=== PATIENT | male | born 1965 | race Caucasian/White ===

== ENCOUNTER 2021-05-22 17:29 | Emergency (ER) | payer BC ==
[2021-05-22] MEDS ORDERED: Bacitracin Oint 1 GM U/D Packet TOP ONE (19:15)
[2021-05-22] MEDS ORDERED: Diphtheria,Pertussis(Acell),Tetanus Vaccine 0.5 ML Syringe IM ONE (19:48)
--- NOTE | 2021-05-22 20:52 | EDM.PDOC ---
ED HPI GENERAL MEDICAL PROBLEM - General Chief Complaint: Laceration Stated Complaint: L PINKY FINGER LACERATION Time Seen by Provider: 05/22/21 19:04 Source of Information: Reports: Patient History Limitations: Reports: No Limitations - History of Present Illness INITIAL COMMENTS - FREE TEXT/NARRATIVE: Presents emergency room today secondary to left pinky injury. He states that he was unloading the boat when he stepped off onto the trailer and slipped he reached out to the boat with his hand to catch himself and cut his pinky. Dates that pain is minimal and he wrapped and rinsed it at home before coming to the emergency room. He is unsure when his last tetanus was that we will will tempt to review his records for this. Patient is right hand dominant PMH--JAIDEN Meds--OTC adriana NKDA Tob--former EtOH--occassional Drugs--denies Has not had COVID infection, has received COVID immunization (J&J--January) Onset: Today - Related Data Allergies Allergy/AdvReac Type Severity Reaction Status Date / Time No Known Allergies Allergy Verified 05/22/21 18:33 Home Meds: Home Meds NK [No Known Home Meds] 05/22/21 [History] Past Medical History HEENT History: Reports: Impaired Vision - Past Surgical History GI Surgical History: Reports: Appendectomy Musculoskeletal Surgical History: Reports: Arthroscopic Knee Social & Family History - Tobacco Use Tobacco Use Status *Q: Never Tobacco User - Caffeine Use Caffeine Use: Reports: Coffee ED ROS GENERAL - Review of Systems Review Of Systems: Comprehensive ROS is negative, except as noted in HPI. Skin: Reports: Wound ED EXAM, SKIN/RASH Exam: See Below Exam Limited By: No Limitations General Appearance: Alert, WD/WN, Mild Distress Eye Exam: Bilateral Eye: Normal Inspection Ears: Normal External Exam, Hearing Grossly Normal Head: Atraumatic, Normocephalic Neck: Normal Inspection, Supple, Full Range of Motion Respiratory/Chest: No Respiratory Distress, Lungs Clear, Normal Breath Sounds, Chest Non-Tender Cardiovascular: Normal Peripheral Pulses, Regular Rate, Rhythm, No Edema, No Murmur (Male) Exam: Deferred Rectal (Males) Exam: Deferred Back Exam: Normal Inspection, Full Range of Motion Extremities: Normal Range of Motion, No Pedal Edema, Normal Capillary Refill, O ther (wound to left pinky--DIP palacios surface) Neurological: Alert, Oriented, Normal Cognition, Normal Gait, No Motor/Sensory Deficits Psychiatric: Normal Affect, Normal Mood Skin: Warm, Dry, Normal Color, Other (2.5 cm laceration to DIP, palacios surface, minimal bleeding noted) ED SKIN PROCEDURES - Laceration/Wound Repair Left Distal Ventral Digit - 5th (Baby) Appearance: Subcutaneous, Linear, Clean Distal NVT: Neuro & Vascular Intact, No Tendon Injury Anesthetic Type: Local Local Anesthesia - Lidocaine (Xylocaine): 1% Plain Local Anesthetic Volume: 4cc Skin Prep: Chlorhexidine (Hibiciens), Saline Saline Irrigation (cc's): 250 Exploration/Debridement/Repair: Wound Explored, Explored to Base, No Foreign Material Found Closed with: Sutures Lac/Wound length In cm: 2.5 Suture Size: 3-0 # of Sutures: 6 Suture Type: Prolene Drain Placement: No Sterile Dressing Applied: Provider Tetanus Status Addressed: Yes (last tetanus 2012, updated today in the ER) Complications: No Course - Vital Signs Text/Narrative:: This with patient and at bedside home care of wound to avoid any dirty water may only some motion when handwashing or when in the shower avoid [place] or dirty water situations otherwise recommended suture removal in 7 to 10 days contact PCM for scheduling daily wound care after bathing then cover with bacitracin and bandage adeel with them signs and symptoms of infection and when to return to the emergency room should any current concerns develop verbalized understanding agreement with plan of care ready for discharge Last Recorded V/S: Last Vital Signs Temp 67.6 F L 05/22/21 18:33 Pulse 69 05/22/21 18:33 Resp 16 05/22/21 18:33 BP 130/80 05/22/21 18:33 Pulse Ox 98 05/22/21 18:33 - Orders/Labs/Meds Orders: Active Orders 24 hr Category Date Time Status Vaccines to be Administered [RC] PER UNIT ROUTINE Care 05/22/21 19:48 Active Meds: Medications Discontinued Medications Generic Name Dose Route Start Last Admin Trade Name Freq PRN Reason Stop Dose Admin Bacitracin 1 dose 05/22/21 19:15 05/22/21 19:27 Bacitracin Oint 1 Gm U/D Packet TOP 05/22/21 19:16 1 dose ONETIME ONE Administration Diphtheria/Tetanus/Acell Pertussis 0.5 ml 05/22/21 19:48 05/22/21 19:55 Diphtheria,Pertussis(Acell),Tetanus Vaccine 0.5 Ml Syringe IM 05/22/21 19:49 0.5 ml .ONCE ONE Administration Lidocaine HCl 5 ml 05/22/21 19:15 05/22/21 19:27 Lidocaine 1% 5 Ml Sdv INJECT 05/22/21 19:16 5 ml ONETIME ONE Administration Departure - Departure Time of Disposition: 20:54 Disposition: Home, Self-Care 01 Clinical Impression: Laceration of finger of left hand, Fall from slipping - Discharge Information *PRESCRIPTION DRUG MONITORING PROGRAM REVIEWED*: Not Applicable *COPY OF PRESCRIPTION DRUG MONITORING REPORT IN PATIENT ELIZABETH: Not Applicable Instructions: Laceration Care, Adult, [id number] Referrals: PCP,None [Primary Care Provider] - Additional Instructions: Keep wound clean and covered with antibiotic ointment/dressing all times (remove for showering or hand washing, then redress) Avoid dirty water situations such as lakes, ponds, creeks, [place], pools or otherwise Have sutures removed in 7-10 days by PCM If any concerns about infection (increasing redness, tenderness, swelling, or drainage/discharge) return to the ER for further evaluation Sepsis Event Note (ED) - Evaluation Sepsis Screening Result: No Definite Risk - Focused Exam Vital Signs: Vital Signs Temp Pulse Resp BP Pulse Ox 05/22/21 18:33 67.6 F L 69 16 130/80 98 05/22/21 18:28 67.6 F L 69 16 130/80 98 - My Orders Last 24 Hours: My Active Orders 05/22/21 19:48 Vaccines to be Administered [RC] PER UNIT ROUTINE - Assessment/Plan Last 24 Hours: My Active Orders 05/22/21 19:48 Vaccines to be Administered [RC] PER UNIT ROUTINE
== END 2021-05-22 21:06 | disposition home or self-care (01) ==
LOC: JP.ED 17:29
DX: S61.217A Laceration without foreign body of left little finger without damage to nail, initial encounter (principal); Z87.891 Personal history of nicotine dependence; Z23 Encounter for immunization; W01.0XXA Fall on same level from slipping, tripping and stumbling without subsequent striking against object, initial encounter
CPT/HCPCS: 12001; 90471; 90715; 99282-25